=== PATIENT | male | born 1955 | race Hispanic/Latino ===

== ENCOUNTER 2017-09-13 13:06 | Emergency (ER) | payer SELFPAY ==
[~2017-09-13] VITALS: Ht 154.9 cm; Wt 59.0 kg
[2017-09-13] MEDS ORDERED: ULTRAM50 M1 PO (15:31)
[2017-09-13 15:36] VITALS: BP 152/111
== END 2017-09-13 15:45 | disposition home or self-care (01) | DRG 605 ==
LOC: ED 13:06
PROC: 0RSJXZZ Reposition Right Shoulder Joint, External Approach (ICD-10-PCS; principal; 2017-09-13)
DX: S00.93XA Contusion of unspecified part of head, initial encounter (principal); S43.004A Unspecified dislocation of right shoulder joint, initial encounter; Y04.8XXA Assault by other bodily force, initial encounter; Y93.01 Activity, walking, marching and hiking; Y92.414 Local residential or business street as the place of occurrence of the external cause

== ENCOUNTER 2020-01-06 12:26 | Emergency (ER) | payer SELFPAY ==
[~2020-01-06 12:26] MED LIST: ULTRAM50 M1 PO
[2020-01-06 13:27] LABS: HEMATOCRIT 34.8 % (39.0-50.0); HEMOGLOBIN 12.8 g/dl (14.0-18.0); IMMATURE GRANULOCYTES 0.6 % (0.0-5.0); MEAN CELL VOLUME 91.8 fL CALC (80.0-100.0); MEAN CORPUSCULAR HGB 33.8 pG CALC (26.0-32.0); MEAN CORPUSCULAR HGB CONC 36.8 g/dL CAL (32.0-36.0); NEUT# 3.73 thou/uL (1.82-7.42); RED BLOOD COUNT 3.79 mill/uL (4.70-6.10)
[2020-01-06 13:36] LABS: ALBUMIN 4.3 g/dL (3.2-5.0); ALKALINE PHOSPHATASE 122 u/l (38-126); ANION GAP 21 (6-22 (CALC)); BILIRUBIN, TOTAL 1.6 mg/dL (0.0-1.4); BUN 23 mg/dL (8-23); BUN/CREATININE RATIO 20 (12-20 (CALC)); CARBON DIOXIDE 20 mmol/l (22-30); CHLORIDE 88 mmol/l (95-108); CREATININE 1.1 mg/dL (0.7-1.3); ETHYL ALCOHOL 17 mg/dl (0-30); GFR > 60 ML/MIN (>=60 (CALC)); GFR FOR AFR.AMER. > 60 ML/MIN (>=60 (CALC)); LIPASE 303 u/l (23-300); MAGNESIUM 1.2 mg/dL (1.6-2.3); SGOT/AST 151 u/l (19-48); SODIUM 125 mmol/l (137-146); TOTAL PROTEIN 9.1 g/dL (6.3-8.2)
[2020-01-06 13:37] LABS: D-DIMER 1.97 mg/L (0.19-0.60); INTERNATIONAL NORMALIZED RATIO 1.1 RATIO (0.7-1.3); PROTHROMBIN TIME 11.8 SECONDS (9.0-12.5)
[2020-01-06 13:55] LABS: C-REACTIVE PROTEIN 2.9 mg/dL (0-0.9)
[2020-01-06 15:04] LABS: URINE BILIRUBIN - DIPSTICK NEGATIVE (NEGATIVE); URINE BLOOD DIPSTICK MODERATE (NEGATIVE); URINE COLOR YELLOW; URINE GLUCOSE - DIPSTICK NEGATIVE (NEGATIVE); URINE KETONE NEGATIVE (NEGATIVE); URINE LEUK ESTERASE NEGATIVE (NEGATIVE); URINE NITRITE - DIPSTICK NEGATIVE (Negative); URINE PROTEIN - DIPSTICK 30 mg/dL (NEG-TRACE); URINE SPECIFIC GRAVITY 1.015
[2020-01-06 15:07] LABS: BARBITURATES NEGATIVE (NEGATIVE); COCAINE NEGATIVE (NEGATIVE); METHADONE NEGATIVE (NEGATIVE); OXCYCODONE NEGATIVE (NEGATIVE); TETRAHYDROCANNABIONOL NEGATIVE (NEGATIVE); TRICYLIC ANTIDEPRESSANTS NEGATIVE (NEGATIVE)
[2020-01-06 15:19] LABS: URINE WBC 0-2 WBC/hpf (0-5)
[2020-01-06 15:34] VITALS: BP 155/69
[2020-01-06] MEDS ORDERED: K-TAB20 MEQ PO (15:40)
[2020-01-06] MEDS ORDERED: AMOXICILLIN/CL875 MG PO (15:40)
[2020-01-06] MEDS ORDERED: ZPAK PO (15:40)
--- NOTE | 2020-01-09 14:49 | NUR ---
BLOOD CULTURE RESULTS CALLED TO . / VIALS GROWING STAPH HOMINIS NO TREATMENT NEEDED AT THIS TIME.
== END 2020-01-06 16:45 | disposition left against medical advice (07) | DRG 871 ==
LOC: ED 12:26
PROVIDERS: Family Medicine
DX: A41.89 Other specified sepsis (principal); U07.1 COVID-19; J12.89 Other viral pneumonia; E83.42 Hypomagnesemia; E87.6 Hypokalemia; Z91.19 Patient's noncompliance with other medical treatment and regimen
CPT/HCPCS: J3475; Q9967

== ENCOUNTER 2020-01-07 08:58 | Emergency (ER) | payer SELFPAY ==
[~2020-01-07 08:58] MED LIST changes: +AMOXICILLIN/CL875 MG PO; +K-TAB20 MEQ PO; +ZPAK PO
[2020-01-07 10:09] LABS: HEMATOCRIT 38.4 % (39.0-50.0); HEMOGLOBIN 13.5 g/dl (14.0-18.0); IMMATURE GRANULOCYTES 0.6 % (0.0-5.0); MEAN CELL VOLUME 93.9 fL CALC (80.0-100.0); MEAN CORPUSCULAR HGB CONC 35.2 g/dL CAL (32.0-36.0); NEUT# 2.9 thou/uL (1.82-7.42); RED BLOOD COUNT 4.09 mill/uL (4.70-6.10); RED CELL DISTRI WIDTH 13.1 % (11.5-15.5)
[2020-01-07 10:11] LABS: ALBUMIN 4.4 g/dL (3.2-5.0); ALKALINE PHOSPHATASE 123 u/l (38-126); ANION GAP 14 (6-22 (CALC)); BILIRUBIN, TOTAL 1.3 mg/dL (0.0-1.4); BUN 19 mg/dL (8-23); BUN/CREATININE RATIO 21 (12-20 (CALC)); CHLORIDE 92 mmol/l (95-108); CREATININE 0.9 mg/dL (0.7-1.3); GFR > 60 ML/MIN (>=60 (CALC)); GFR FOR AFR.AMER. > 60 ML/MIN (>=60 (CALC)); LIPASE 386 u/l (23-300); POTASSIUM 2.9 mmol/l (3.5-5.1); SGOT/AST 134 u/l (19-48); SODIUM 130 mmol/l (137-146); TOTAL PROTEIN 9.1 g/dL (6.3-8.2)
[2020-01-07 10:13] LABS: CARBON DIOXIDE 27 mmol/l (22-30)
[2020-01-07 11:45] VITALS: BP 153/91
== END 2020-01-07 12:00 | disposition left against medical advice (07) | DRG 194 ==
LOC: ED 08:58
PROVIDERS: Family Medicine
DX: J18.9 Pneumonia, unspecified organism (principal); E87.1 Hypo-osmolality and hyponatremia; R07.9 Chest pain, unspecified; E87.6 Hypokalemia; Z91.19 Patient's noncompliance with other medical treatment and regimen

== ENCOUNTER 2020-01-08 13:52 | Emergency (ER) | payer SELFPAY ==
[2020-01-08 15:07] LABS: HEMATOCRIT 37.4 % (39.0-50.0); HEMOGLOBIN 13.1 g/dl (14.0-18.0); IMMATURE GRANULOCYTES 0.9 % (0.0-5.0); MEAN CORPUSCULAR HGB 32.9 pG CALC (26.0-32.0); NEUT# 1.59 thou/uL (1.82-7.42); RED BLOOD COUNT 3.98 mill/uL (4.70-6.10); RED CELL DISTRI WIDTH 13.2 % (11.5-15.5)
[2020-01-08 15:24] LABS: ANION GAP 15 (6-22 (CALC)); BUN 21 mg/dL (8-23); BUN/CREATININE RATIO 22 (12-20 (CALC)); CARBON DIOXIDE 24 mmol/l (22-30); CHLORIDE 96 mmol/l (95-108); GFR > 60 ML/MIN (>=60 (CALC)); GFR FOR AFR.AMER. > 60 ML/MIN (>=60 (CALC)); POTASSIUM 3.3 mmol/l (3.5-5.1); SODIUM 131 mmol/l (137-146)
[2020-01-08 15:56] VITALS: BP 125/70
== END 2020-01-08 16:10 | disposition home or self-care (01) | DRG 551 ==
LOC: ED 13:52
PROVIDERS: Family Medicine
DX: M54.6 Pain in thoracic spine (principal); U07.1 COVID-19; J12.89 Other viral pneumonia